=== PATIENT | female | born 1960 | race Caucasian/White ===

== ENCOUNTER 2020-08-25 20:33 | Emergency (ER) | payer BC, OTHER ==
[~2020-08-25] VITALS: Ht 152.4 cm; Wt 81.6 kg
[2020-08-25 20:38] VITALS: BP 163/90
--- NOTE | 2020-08-25 20:38 | NUR ---
to bed ambulatory
--- NOTE | 2020-08-25 21:12 | NUR ---
placed in bed 04. appears comfortable sitting up in bed with 1 rail up for safety. pt is a/o x 4, gcs 15. able to move all extremities. 59 year old female coming from home for c/o left 2nd metatarsal wound. pt is a known diabetic and is compliant with medications. denies any pain on the affected site. denies any other s/sx. breathing is clear and unlabored. abdoment is soft and nontender. normoactive bowel sounds on all quadrants. pmhx: HTN ,DM, HLD nkda
--- NOTE | 2020-08-25 21:40 | NUR ---
Dr. Gasca examining patient at bedside.
--- NOTE | 2020-08-25 21:49 | NUR ---
X-Ray at bedside.
[2020-08-25 22:17] VITALS: BP 147/71
--- NOTE | 2020-08-25 22:18 | NUR ---
pt now laying down comfortaby in bed. does not appear to be in distress. a/o x 4. gcs 15.
[2020-08-25 22:22] LABS: BASOPHILS % (AUTO) 0.5 % (0.0-2.0); EOSINOPHILS # (AUTO) 0.1 K/uL (0-0.4); EOSINOPHILS % (AUTO) 2.1 % (0.0-4.0); HEMATOCRIT 37.2 % (36-48); HEMOGLOBIN 12.6 g/dL (12.0-16.0); LYMPHOCYTES # (AUTO) 1.8 K/uL (2.5-16.5); LYMPHOCYTES % (AUTO) 30.3 % (20.5-51.1); MEAN CORPUSCULAR HEMOGLOBIN 30 pg (27-31); MEAN CORPUSCULAR HGB CONC 34 g/dL (33-37); MEAN CORPUSCULAR VOLUME 88.5 fL (80-94); MONOCYTES # (AUTO) 0.3 K/uL (0.8-1.0); MONOCYTES % (AUTO) 4.9 % (1.7-9.3); NEUTROPHILS # (AUTO) 3.8 K/uL (1.8-7.7); NEUTROPHILS % (AUTO) 62.2 % (42.2-75.2); PLATELET COUNT (AUTO) 206 K/uL (140-450); RED CELL DISTRIBUTION WIDTH 12.5 % (11.6-13.7)
[2020-08-25] MEDS ORDERED: CEPH250C16 PO (23:03)
--- NOTE | 2020-08-25 23:05 | NUR ---
Dr. Gasca examining patient.
== END 2020-08-25 23:31 | disposition home or self-care (01) ==
LOC: MED 20:33
DX: S91.115A Laceration without foreign body of left lesser toe(s) without damage to nail, initial encounter (principal); E11.40 Type 2 diabetes mellitus with diabetic neuropathy, unspecified; Z79.899 Other long term (current) drug therapy; X58.XXXA Exposure to other specified factors, initial encounter; Y93.89 Activity, other specified; Y92.89 Other specified places as the place of occurrence of the external cause; Y99.8 Other external cause status
CPT/HCPCS: 36415; 73630; 85025; 85651; 86140; 99284

== ENCOUNTER 2020-11-27 11:17 | Emergency (ER) | payer OTHER ==
[~2020-11-27] VITALS: Ht 152.4 cm; Wt 81.6 kg
[~2020-11-27 11:17] MED LIST: CEPH250C16 PO
[2020-11-27 11:23] VITALS: BP 173/74
--- NOTE | 2020-11-27 11:36 | NUR ---
60 Y/O FEMALE C/O R LEG PAIN S/P FALLING AT HOME 11/21/20. PT DENIES HITTING HEAD/LOC. PT CALLED PCP AND WAS GIVEN IBUPROFEN BUT PAIN IS WORSENING. PT STATES 12/28 PRESSURE PAIN. SWELLING AND BRUISING NOTED TO RT LEG. PMH:DM- NEUROPATHY, HTN NKDA
--- NOTE | 2020-11-27 11:39 | NUR ---
DR DIAZ AT BEDSIDE EXAMINING PT
[2020-11-27] MEDS ORDERED: KETOROLAC 30 MG/ML VIAL IM ONE (11:45)
--- NOTE | 2020-11-27 11:47 | NUR ---
XRAY AT BEDSIDE
[2020-11-27] MEDS ORDERED: TRAM50TA3 PO (12:28)
[2020-11-27] MEDS ORDERED: DICL1GEL19 TP (12:28)
--- NOTE | 2020-11-27 12:30 | NUR ---
applied mariel wrap to right knee without any issues
[2020-11-27 12:36] VITALS: BP 173/74
--- NOTE | 2020-11-27 12:36 | NUR ---
Patient discharged with v/s stable. Written and verbal after care instructions given and explained. Patient alert, oriented and verbalized understanding of instructions. Ambulatory with steady gait. All questions addressed prior to discharge. ID band removed. Patient advised to follow up with PMD. Rx of TRAMADOL AND VOLTAREN given. Patient educated on indication of medication including possible reaction and side effects. Opportunity to ask questions provided and answered.
== END 2020-11-27 12:36 | disposition home or self-care (01) ==
LOC: MED 11:17
DX: S80.01XA Contusion of right knee, initial encounter (principal); M25.461 Effusion, right knee; E11.9 Type 2 diabetes mellitus without complications; I10 Essential (primary) hypertension; Z79.899 Other long term (current) drug therapy; W19.XXXA Unspecified fall, initial encounter; Y93.89 Activity, other specified; Y92.89 Other specified places as the place of occurrence of the external cause; Y99.8 Other external cause status
CPT/HCPCS: 73562; 96372; 99283; J1885

== ENCOUNTER 2021-02-15 21:44 | Emergency (ER) | payer OTHER ==
[~2021-02-15] VITALS: Ht 152.4 cm; Wt 78.5 kg
[~2021-02-15 21:44] MED LIST changes: +DICL1GEL19 TP; +TRAM50TA3 PO
[2021-02-15 22:10] VITALS: BP 152/90
--- NOTE | 2021-02-15 22:10 | NUR ---
TO BED AMBULATORY
--- NOTE | 2021-02-15 22:20 | NUR ---
PATIENT BIB SELF FROM HOME FOR C/O ABSCESS TO POSTERIOR ANKLE. PATIENT STATES APPEARED X 4 DAYS AGO AND HAD GOTTEN WORSE. PER PATIENT WENT TO SEE PRIMARY CARE X 2 DAYS AGO AND IS CURRENTLY TAKING ROCEPHIN AND BACTRIM PO FOR ABCESS. PATIENT STATES REDNESS AND SWELLING GREW. PATIENT DENIES FEVERS, CURRENTLY AFEBRILE. PATIENT STATES PAIN 5/10 UPON PALPATION. WOUND 2CM X 2 CM. REDNESS NOTED AROUND BOARDER, WITH SWELLING, WOUND CLOSED WITH PURLUENT DRAINAGE NOTED UNDER SKIN. MEDHX: DM TYPE II. NKA
--- NOTE | 2021-02-15 22:20 | NUR ---
ERMD AT BEDSIDE FOR MEDICAL EVALUATION.
--- NOTE | 2021-02-15 23:23 | NUR ---
I&D Procedure done by Dr HELLER, 2CC amt of bleeding noted. PATIET WOUND CLEANED WITH NS AND XEROFORM APPLIED. Wound care discussed w/ patient.
[2021-02-15] MEDS ORDERED: BACITRACIN OINT 500 UNITS/GM PKT TP ONE (23:30)
[2021-02-15] MEDS ORDERED: CLIN300C2 PO (23:41)
[2021-02-15] MEDS ORDERED: ITRA100C PO (23:41)
[2021-02-15 23:50] VITALS: BP 148/82
--- NOTE | 2021-02-15 23:50 | NUR ---
Patient discharged with v/s stable. Written and verbal after care instructions given and explained. Patient alert, oriented and verbalized understanding of instructions. Ambulatory with steady gait. All questions addressed prior to discharge. ID band removed. Patient advised to follow up with PMD. Rx of CLINDAMYCIN, ITRACONAZOLE given. Patient educated on indication of medication including possible reaction and side effects. Opportunity to ask questions provided and answered.
== END 2021-02-15 23:50 | disposition home or self-care (01) ==
LOC: MED 21:44
DX: L03.116 Cellulitis of left lower limb (principal); E11.9 Type 2 diabetes mellitus without complications
CPT/HCPCS: 99283

== ENCOUNTER 2021-07-11 19:19 | Emergency (ER) | payer OTHER ==
[~2021-07-11] VITALS: Ht 154.9 cm; Wt 78.2 kg
[~2021-07-11 19:19] MED LIST changes: +CLIN300C2 PO; +[UNRECOGNIZED DRUG - CODE] PO
[2021-07-11 19:30] VITALS: BP 160/74
--- NOTE | 2021-07-11 19:33 | NUR ---
TO LOBBY A/W BED AMBULATORY
--- NOTE | 2021-07-11 20:30 | NUR ---
SEEN AND EXAMINED BY DORIS
[2021-07-11] MEDS ORDERED: LIDOCAINE/PRILOCAINE 2.5% 5 GM TUBE TP ONE (20:35)
[2021-07-11] MEDS ORDERED: ACETAMINOPHEN EXTRA STRENGTH 500 MG TAB PO ONE (20:35)
--- NOTE | 2021-07-11 22:00 | NUR ---
WOUND WAS CLEANED BY PA , PATIENT TOLERATED WELL.
[2021-07-11] MEDS ORDERED: ACET-10509 PO (22:06)
[2021-07-11] MEDS ORDERED: SULF-59 PO (22:06)
[2021-07-11 22:10] VITALS: BP 123/82
--- NOTE | 2021-07-11 22:10 | NUR ---
Patient discharged with v/s stable. Written and verbal after care instructions given and explained. Patient alert, oriented and verbalized understanding of instructions. Ambulatory with steady gait. All questions addressed prior to discharge. ID band removed. Patient advised to follow up with PMD. Rx of TYLENOL, BACTRIM given. Patient educated on indication of medication including possible reaction and side effects. Opportunity to ask questions provided and answered.
== END 2021-07-11 22:10 | disposition home or self-care (01) ==
LOC: MED 19:19
DX: L02.811 Cutaneous abscess of head [any part, except face] (principal); I10 Essential (primary) hypertension; E11.9 Type 2 diabetes mellitus without complications; Z79.899 Other long term (current) drug therapy
CPT/HCPCS: 99283

== ENCOUNTER 2021-07-21 15:13 | Emergency (ER) | payer OTHER ==
[~2021-07-21] VITALS: Ht 157.5 cm; Wt 76.7 kg
[~2021-07-21 15:13] MED LIST changes: +ACET-10509 PO; +SULF-59 PO
[2021-07-21 15:48] VITALS: BP 191/95
--- NOTE | 2021-07-21 15:51 | NUR ---
PT TO WAIT IN LOBBY.
--- NOTE | 2021-07-21 16:06 | NUR ---
PT TO Viky, DR. GILL WITH PT FOR FURTHER EVALUATION.
[2021-07-21] MEDS ORDERED: LIDOCAINE/EPI 1% 1:100000 20 ML VIAL INJ ONE (16:10)
--- NOTE | 2021-07-21 16:14 | NUR ---
60 Y/O FEMALE C/O HEADACHE 910 S/P HEAD INJURY [id number] AGO. PT STATES SHE WAS SEEN X1WEEK AGO AND TODAY PUS IS DRAINING FROM AREA. DENIES FEVER/CHILLS. DENIES N/V. BLOOD SUGAR 493. PMH: DM, HTN, HLD NKA
[2021-07-21 16:47] LABS: BASOPHILS % (AUTO) 0.4 % (0.0-2.0); EOSINOPHILS # (AUTO) 0.1 K/uL (0-0.4); EOSINOPHILS % (AUTO) 1.9 % (0.0-4.0); HEMOGLOBIN 11.9 g/dL (12.0-16.0); LYMPHOCYTES # (AUTO) 1.6 K/uL (2.5-16.5); LYMPHOCYTES % (AUTO) 21.9 % (20.5-51.1); MEAN CORPUSCULAR HEMOGLOBIN 30 pg (27-31); MEAN CORPUSCULAR HGB CONC 34 g/dL (33-37); MEAN CORPUSCULAR VOLUME 87.6 fL (80-94); MONOCYTES # (AUTO) 0.3 K/uL (0.8-1.0); MONOCYTES % (AUTO) 4.4 % (1.7-9.3); NEUTROPHILS # (AUTO) 5.1 K/uL (1.8-7.7); NEUTROPHILS % (AUTO) 71.4 % (42.2-75.2); PLATELET COUNT (AUTO) 289 K/uL (140-450); RED BLOOD CELL COUNT(AUTO) 3.99 MIL/uL (4.20-5.40); RED CELL DISTRIBUTION WIDTH 12.4 % (11.6-13.7); WHITE BLOOD COUNT (AUTO) 7.2 K/uL (4.8-10.8)
[2021-07-21 17:14] LABS: ANION GAP 10.7 (8-16); CARBON DIOXIDE 30.7 mmol/L (21-32); POTASSIUM 5.4 mmol/L (3.5-5.1)
--- NOTE | 2021-07-21 17:19 | NUR ---
RICKI MCMAHON WITH PT IN B FOR PROCEDURE.
[2021-07-21] MEDS ORDERED: NACL 0.9% 1,000 ML IV ONE (19:10)
[2021-07-21] MEDS ORDERED: INSULIN REGULAR, HUMAN 100 UNIT/ML VIAL IVP ONE (19:10)
[2021-07-21 21:39] LABS: ANION GAP 11.9 (8-16); CARBON DIOXIDE 28.7 mmol/L (21-32); CREATININE 0.9 mg/dL (0.6-1.3); POTASSIUM 4.6 mmol/L (3.5-5.1)
[2021-07-21] MEDS ORDERED: SULF-59 PO (21:44)
[2021-07-21 22:12] VITALS: BP 175/85
== END 2021-07-21 22:12 | disposition home or self-care (01) ==
LOC: MED 15:13
DX: L02.811 Cutaneous abscess of head [any part, except face] (principal); E11.65 Type 2 diabetes mellitus with hyperglycemia; I10 Essential (primary) hypertension; Z79.899 Other long term (current) drug therapy
CPT/HCPCS: 10060; 36415; 80048; 85025; 96361; 96374; 99283; J1815; J2001; J7030

== ENCOUNTER 2022-04-25 13:44 | Emergency (ER) | payer OTHER ==
[~2022-04-25] VITALS: Ht 147.3 cm; Wt 79.4 kg
[2022-04-25 14:04] VITALS: BP 200/97
--- NOTE | 2022-04-25 14:27 | NUR ---
61/F WALKED IN REQUESTING MED REFILL OF INSULIN. PT STATES HER PX INSULIN RAN OUT LAST NIGHT AND HAS BEEN FEELING DIZZY AND NAUSEOUS TODAY. BS AT TRIAGE 418 AND BP 200/97. ERMD AWARE. PMH: DM, HTN, CHOLESTEROL NKDA
[2022-04-25] MEDS ORDERED: NACL 0.9% 1,000 ML IV ONE (14:30)
[2022-04-25] MEDS ORDERED: lisinopriL 20 MG TAB PO ONE (14:30)
[2022-04-25 15:00] LABS: BASOPHILS % (AUTO) 0.6 % (0.0-2.0); EOSINOPHILS # (AUTO) 0.1 K/uL (0-0.4); EOSINOPHILS % (AUTO) 0.9 % (0.0-4.0); HEMATOCRIT 35.5 % (36-48); HEMOGLOBIN 12.1 g/dL (12.0-16.0); LYMPHOCYTES # (AUTO) 1.2 K/uL (2.5-16.5); LYMPHOCYTES % (AUTO) 20.4 % (20.5-51.1); MEAN CORPUSCULAR HEMOGLOBIN 30 pg (27-31); MEAN CORPUSCULAR HGB CONC 34 g/dL (33-37); MEAN CORPUSCULAR VOLUME 89.4 fL (80-94); MONOCYTES # (AUTO) 0.3 K/uL (0.8-1.0); NEUTROPHILS # (AUTO) 4.3 K/uL (1.8-7.7); NEUTROPHILS % (AUTO) 73.1 % (42.2-75.2); PLATELET COUNT (AUTO) 192 K/uL (140-450); RED BLOOD CELL COUNT(AUTO) 3.97 MIL/uL (4.20-5.40); RED CELL DISTRIBUTION WIDTH 12.7 % (11.6-13.7); WHITE BLOOD COUNT (AUTO) 5.9 K/uL (4.8-10.8)
--- NOTE | 2022-04-25 15:00 | NUR ---
XR AT BEDSIDE
--- NOTE | 2022-04-25 15:04 | NUR ---
EKG AT BEDSIDE
[2022-04-25] MEDS ORDERED: CLONIDINE HYDROCHLORIDE 0.1 MG TAB PO ONE (15:20)
[2022-04-25 15:22] LABS: PROTHROMBIN TIME 9.4 secs (10.8-13.4)
[2022-04-25 15:28] LABS: ACETONE, SERUM NEGATIVE (NEGATIVE); ALBUMIN 2.2 g/dL (3.4-5.0); CARBON DIOXIDE 27.6 mmol/L (21-32); CREATININE 1.2 mg/dL (0.6-1.3); TOTAL BILIRUBIN 0.1 mg/dL (0.0-1.0)
[2022-04-25 15:43] LABS: POTASSIUM 4.6 mmol/L (3.5-5.1)
--- NOTE | 2022-04-25 15:47 | NUR ---
PT WENT FOR CT
--- NOTE | 2022-04-25 16:00 | NUR ---
PT BACK FROM CT. PT AMBULATED TO RESTROOM.
[2022-04-25] MEDS ORDERED: hydrALAZINE 25 MG TAB PO STA (16:14)
[2022-04-25] MEDS ORDERED: hydrALAZINE 10 MG TAB ONE (16:21)
[2022-04-25] MEDS ORDERED: hydrALAZINE 10 MG TAB PO STA (16:23)
[2022-04-25] MEDS ORDERED: LISI40TA12 PO (17:07)
[2022-04-25] MEDS ORDERED: INSU100I7 SQ (17:07)
[2022-04-25 17:12] VITALS: BP 179/75
--- NOTE | 2022-04-25 17:15 | NUR ---
Patient discharged with v/s stable. Written and verbal after care instructions given and explained. Patient alert, oriented and verbalized understanding of instructions. Ambulatory with steady gait. All questions addressed prior to discharge. ID band removed. Patient advised to follow up with PMD. Patient educated on indication of medication including possible reaction and side effects. Opportunity to ask questions provided and answered.
== END 2022-04-25 17:15 | disposition home or self-care (01) ==
LOC: MED 13:44
DX: E11.65 Type 2 diabetes mellitus with hyperglycemia (principal); I10 Essential (primary) hypertension; R51.9 Headache, unspecified; E78.5 Hyperlipidemia, unspecified; Z76.0 Encounter for issue of repeat prescription; Z79.899 Other long term (current) drug therapy
CPT/HCPCS: 36415; 70450; 71045; 80053; 82009; 83880; 84484; 85025; 85610; 85730; 93005; 99291; J7030

== ENCOUNTER 2023-01-16 16:40 | Emergency (ER) | payer OTHER ==
[~2023-01-16] VITALS: Ht 149.9 cm; Wt 83.9 kg
[~2023-01-16 16:40] MED LIST changes: +INSU100I7 SQ; +LISI40TA12 PO
[2023-01-16 16:47] VITALS: BP 150/60; PULSE 97; RESP 20; TEMP 99; O2SAT 99
--- NOTE | 2023-01-16 17:00 | NUR ---
PT AMBULATED TO BED 11
[2023-01-16 17:58] VITALS: BP 140/62; PULSE 88; RESP 20; TEMP 98.1; O2SAT 99
--- NOTE | 2023-01-16 17:58 | NUR ---
Patient discharged with v/s stable. Written and verbal after care instructions FOR PUNCTURE WOUND given and explained. Patient verbalized understanding. Ambulatory with steady gait. All questions addressed prior to discharge. Advised to follow up with PMD.
== END 2023-01-16 17:58 | disposition home or self-care (01) ==
LOC: MED 16:40
DX: S91.302A Unspecified open wound, left foot, initial encounter (principal); E11.9 Type 2 diabetes mellitus without complications; I10 Essential (primary) hypertension; E78.5 Hyperlipidemia, unspecified; W22.8XXA Striking against or struck by other objects, initial encounter; Y93.89 Activity, other specified; Y92.89 Other specified places as the place of occurrence of the external cause; Y99.8 Other external cause status
CPT/HCPCS: 73630; 82948; 90471; 90715; 99283; 99284

== ENCOUNTER 2023-02-06 21:52 | Inpatient (IN) | payer OTHER ==
[~2023-02-06] VITALS: Ht 157.5 cm; Wt 71.7 kg
[2023-02-06 22:03] VITALS: BP 150/68; PULSE 89; RESP 17; TEMP 97.8; O2SAT 97
[2023-02-06] MEDS ORDERED: MORPHINE SULFATE 4 MG/ML SYR IVP ONE (23:25)
[2023-02-06] MEDS ORDERED: ONDANSETRON 4 MG/2 ML VIAL IVP ONE (23:25)
[2023-02-06] MEDS ORDERED: ENALAPRILAT 2.5 MG/2 ML VIAL IVP ONE (23:25)
[2023-02-06 23:50] LABS: BASOPHILS % (AUTO) 0.2 % (0.0-2.0); EOSINOPHILS % (AUTO) 0.2 % (0.0-4.0); HEMATOCRIT 35.4 % (36-48); HEMOGLOBIN 11.9 g/dL (12.0-16.0); LYMPHOCYTES # (AUTO) 1.4 K/uL (2.5-16.5); LYMPHOCYTES % (AUTO) 30.3 % (20.5-51.1); MEAN CORPUSCULAR HEMOGLOBIN 30 pg (27-31); MEAN CORPUSCULAR HGB CONC 34 g/dL (33-37); MEAN CORPUSCULAR VOLUME 88.8 fL (80-94); MONOCYTES # (AUTO) 0.5 K/uL (0.8-1.0); MONOCYTES % (AUTO) 10.7 % (1.7-9.3); NEUTROPHILS # (AUTO) 2.6 K/uL (1.8-7.7); NEUTROPHILS % (AUTO) 58.6 % (42.2-75.2); PLATELET COUNT (AUTO) 149 K/uL (140-450); RED BLOOD CELL COUNT(AUTO) 3.98 MIL/uL (4.20-5.40); RED CELL DISTRIBUTION WIDTH 12.8 % (11.6-13.7); WHITE BLOOD COUNT (AUTO) 4.5 K/uL (4.8-10.8)
[2023-02-07] VITALS (7 sets, daily range): BP systolic 155–168; BP diastolic 93–112; PULSE 77–84; RESP 18–20; TEMP 97.4–98.6; O2SAT 95–98
[2023-02-07 00:20] LABS: ALANINE AMINOTRANSFERASE 22 U/L (12-78); ALBUMIN 2.8 g/dL (3.4-5.0); ALKALINE PHOSPHATASE 101 U/L (50-136); ANION GAP 10.3 (8-16); ASPARTATE AMINOTRANSFERASE 23 U/L (15-37); CALCIUM 8.3 mg/dL (8.5-10.1); CARBON DIOXIDE 30.4 mmol/L (21-32); CHLORIDE 103 mmol/L (98-107); CREATININE 1.4 mg/dL (0.6-1.3); GFR ARICAN-AMERICAN 49 mL/min (>90); GFR NON ARICAN-AMERICAN 40 mL/min (>90); GLUCOSE 184 mg/dL (74-106); POTASSIUM 4.7 mmol/L (3.5-5.1); SODIUM SERUM 139 mmol/L (136-145); TOTAL BILIRUBIN 0.5 mg/dL (0.0-1.0); TOTAL PROTEIN, SERUM 6.8 g/dL (6.4-8.2); UREA NITROGEN, BLOOD 18 mg/dL (7-18)
[2023-02-07 02:49] LABS: BILIRUBIN,URINE NEGATIVE (NEGATIVE); BLOOD, URINE 2+ (NEGATIVE); COLOR,URINE YELLOW (YELLOW); LEUKOCYTE ESTERASE ,URINE NEGATIVE (NEGATIVE); NITRITE, URINE NEGATIVE (NEGATIVE); PROTEIN,URINE 3+ (NEGATIVE); UGLUCOSE NEGATIVE (NEGATIVE); UROBILINOGEN,URINE 0.2 EU/dL (0.2 - 1)
[2023-02-07 02:53] LABS: APPEARANCE,URINE SLIGHTLY CLOUDY (CLEAR)
[2023-02-07 03:07] LABS: BACTERIA,URINE 4+ /HPF (None Seen); RBC,URINE 0-5 /HPF (0-5); SQUAMOUS EPITHELIAL CELL,UR 0-3 (FEW) /LPF (0-3 (FEW))
[2023-02-07] MEDS ORDERED: LISI-487 PO (04:01)
[2023-02-07] MEDS ORDERED: NITR100C7 PO (04:01)
[2023-02-07] MEDS ORDERED: ONDANSETRON 4 MG/2 ML VIAL ONE (04:23)
[2023-02-07] MEDS ORDERED: ONDANSETRON 4 MG/2 ML VIAL IVP ONE (04:30)
[2023-02-07] MEDS ORDERED: cefTRIAXone 1,000 MG VIAL ONE (04:34)
[2023-02-07] MEDS ORDERED: levETIRAcetam 100 MG/ML VIAL IV ONE (04:35)
[2023-02-07] MEDS ORDERED: MORPHINE SULFATE 2 MG/ML SYR IVP PRN (05:20)
[2023-02-07] MEDS ORDERED: KCL 20 MEQ IN 100 mL PREMIX 200 ML IV PRN (05:20)
[2023-02-07] MEDS ORDERED: POTASSIUM CHLORIDE 10 MEQ TABER PO PRN (05:20)
[2023-02-07] MEDS ORDERED: MAGNESIUM OXIDE 400 MG TAB PO PRN (05:20)
[2023-02-07] MEDS ORDERED: MAG SULF 2000 MG/WATER PREMIX 50 ML IV PRN (05:20)
[2023-02-07] MEDS ORDERED: ONDANSETRON 4 MG/2 ML VIAL IVP PRN (05:20)
[2023-02-07] MEDS ORDERED: hydrALAZINE 20 MG/ML VIAL IVP PRN (05:25)
[2023-02-07] MEDS: levETIRAcetam 500 MG in NACL 0.9% 100 ML IV SCH ×2 (09:00→21:49)
[2023-02-07] MEDS: ENOXAPARIN 40 MG/0.4 ML SYR SUBQ SCH (09:00)
[2023-02-07] MEDS: ACETAMINOPHEN 325 MG TAB PO PRN ×2 (11:41→17:31)
[2023-02-08] VITALS (7 sets, daily range): BP systolic 125–177; BP diastolic 40–100; PULSE 70–106; RESP 17–20; TEMP 98.6–99.1; O2SAT 94–97
[2023-02-08] MEDS: ACETAMINOPHEN 325 MG TAB PO PRN ×2 (04:44→15:20)
[2023-02-08 05:46] LABS: ALBUMIN 2.4 g/dL (3.4-5.0); ANION GAP 10.1 (8-16); BASOPHILS % (AUTO) 0.2 % (0.0-2.0); CARBON DIOXIDE 27.6 mmol/L (21-32); CREATININE 1.6 mg/dL (0.6-1.3); EOSINOPHILS % (AUTO) 0.6 % (0.0-4.0); HEMATOCRIT 32.7 % (36-48); HEMOGLOBIN 11.1 g/dL (12.0-16.0); LYMPHOCYTES # (AUTO) 0.8 K/uL (2.5-16.5); LYMPHOCYTES % (AUTO) 20.9 % (20.5-51.1); MAGNESIUM 2.1 mg/dL (1.8-2.4); MEAN CORPUSCULAR HEMOGLOBIN 30 pg (27-31); MEAN CORPUSCULAR HGB CONC 34 g/dL (33-37); MEAN CORPUSCULAR VOLUME 89.1 fL (80-94); MONOCYTES # (AUTO) 0.5 K/uL (0.8-1.0); MONOCYTES % (AUTO) 11.1 % (1.7-9.3); NEUTROPHILS # (AUTO) 2.7 K/uL (1.8-7.7); NEUTROPHILS % (AUTO) 67.2 % (42.2-75.2); PLATELET COUNT (AUTO) 119 K/uL (140-450); POTASSIUM 4.7 mmol/L (3.5-5.1); RED BLOOD CELL COUNT(AUTO) 3.67 MIL/uL (4.20-5.40); RED CELL DISTRIBUTION WIDTH 12.7 % (11.6-13.7); TOTAL BILIRUBIN 0.3 mg/dL (0.0-1.0); TOTAL PROTEIN, SERUM 6.3 g/dL (6.4-8.2); WHITE BLOOD COUNT (AUTO) 4.1 K/uL (4.8-10.8)
[2023-02-08] MEDS: ENOXAPARIN 40 MG/0.4 ML SYR SUBQ SCH (08:27)
[2023-02-08] MEDS: levETIRAcetam 500 MG in NACL 0.9% 100 ML IV SCH ×2 (09:29→22:18)
[2023-02-08] MEDS: HYDROcodone/APAP 5/325 MG 1 TAB TAB PO PRN (11:13)
[2023-02-08] MEDS: hydrALAZINE 20 MG/ML VIAL IVP PRN (16:38)
[2023-02-08] MEDS ORDERED: remdesivir COMMUNICATION ORDER 1 EA MISC MC PRN (17:40)
[2023-02-08] MEDS ORDERED: remdesivir CLINICAL MONITORING 1 EA MISC MC PRN (17:50)
[2023-02-08] MEDS ORDERED: REMDESIVIR. 200 MG in NACL 0.9% 100 ML IV SCH (18:30)
[2023-02-09] VITALS: BP 153/96; PULSE 76; RESP 20; TEMP 98.5; O2SAT 95
[2023-02-09] MEDS: hydrALAZINE 20 MG/ML VIAL IVP PRN ×2 (01:42→21:08)
[2023-02-09 08:00] VITALS: BP 159/67; PULSE 60; RESP 20; TEMP 97.2; O2SAT 99
[2023-02-09 08:00] LABS: BASOPHILS % (AUTO) 0.1 % (0.0-2.0); HEMATOCRIT 33.9 % (36-48); HEMOGLOBIN 11.2 g/dL (12.0-16.0); LYMPHOCYTES # (AUTO) 0.6 K/uL (2.5-16.5); LYMPHOCYTES % (AUTO) 18.6 % (20.5-51.1); MEAN CORPUSCULAR HEMOGLOBIN 30 pg (27-31); MEAN CORPUSCULAR HGB CONC 33 g/dL (33-37); MONOCYTES # (AUTO) 0.1 K/uL (0.8-1.0); MONOCYTES % (AUTO) 3.9 % (1.7-9.3); NEUTROPHILS # (AUTO) 2.4 K/uL (1.8-7.7); NEUTROPHILS % (AUTO) 77.4 % (42.2-75.2); PLATELET COUNT (AUTO) 119 K/uL (140-450); RED BLOOD CELL COUNT(AUTO) 3.81 MIL/uL (4.20-5.40); RED CELL DISTRIBUTION WIDTH 12.7 % (11.6-13.7); WHITE BLOOD COUNT (AUTO) 3.1 K/uL (4.8-10.8)
[2023-02-09 08:21] LABS: ALBUMIN 2.2 g/dL (3.4-5.0); ANION GAP 13.4 (8-16); CALCIUM 7.9 mg/dL (8.5-10.1); CARBON DIOXIDE 26.1 mmol/L (21-32); CREATININE 1.8 mg/dL (0.6-1.3); MAGNESIUM 2.5 mg/dL (1.8-2.4); POTASSIUM 4.5 mmol/L (3.5-5.1); TOTAL BILIRUBIN 0.2 mg/dL (0.0-1.0); TOTAL PROTEIN, SERUM 6.4 g/dL (6.4-8.2)
[2023-02-09] MEDS: ENOXAPARIN 40 MG/0.4 ML SYR SUBQ SCH (09:00)
[2023-02-09] MEDS: levETIRAcetam 500 MG in NACL 0.9% 100 ML IV SCH ×2 (09:58→20:42)
[2023-02-09] MEDS ORDERED: DEXTROSE 50% 50 ML SYR IVP PRN (12:50)
[2023-02-09 13:33] VITALS: O2SAT 96
[2023-02-09 16:00] VITALS: BP 159/69; PULSE 70; RESP 20; TEMP 97.5; O2SAT 98
[2023-02-09] MEDS ORDERED: REMDESIVIR. 100 MG in NACL 0.9% 100 ML IV SCH (16:00)
[2023-02-09] MEDS: BLOOD GLUCOSE MONITORING 1 DEV DEV FS SCH ×2 (17:05→21:03)
[2023-02-09] MEDS: INSULIN LISPRO SLIDING SCALE 100 UNITS/ML VIAL SUBQ PRN ×2 (17:05→21:04)
[2023-02-09] MEDS ORDERED: INSULIN LANTUS 100 UNITS/ML 10 ML VIAL SUBQ SCH (18:27)
[2023-02-09 20:00] VITALS: BP 170/74; PULSE 85; RESP 20; TEMP 97.1; O2SAT 97
[2023-02-10] VITALS: BP 156/76; PULSE 77; RESP 19; TEMP 97.3; O2SAT 98
[2023-02-10] MEDS: HYDROcodone/APAP 5/325 MG 1 TAB TAB PO PRN (01:56)
[2023-02-10] MEDS: hydrALAZINE 20 MG/ML VIAL IVP PRN (06:10)
[2023-02-10] MEDS: BLOOD GLUCOSE MONITORING 1 DEV DEV FS SCH ×2 (06:11→11:30)
[2023-02-10] MEDS: INSULIN LISPRO SLIDING SCALE 100 UNITS/ML VIAL SUBQ PRN ×2 (06:12→13:18)
[2023-02-10 08:00] VITALS: PULSE 81
[2023-02-10 08:40] LABS: HEMATOCRIT 30.9 % (36-48); HEMOGLOBIN 10.5 g/dL (12.0-16.0); LYMPHOCYTES % (AUTO) 17.5 % (20.5-51.1); MEAN CORPUSCULAR HEMOGLOBIN 30 pg (27-31); MEAN CORPUSCULAR HGB CONC 34 g/dL (33-37); MONOCYTES # (AUTO) 0.2 K/uL (0.8-1.0); MONOCYTES % (AUTO) 4.2 % (1.7-9.3); NEUTROPHILS # (AUTO) 4.3 K/uL (1.8-7.7); NEUTROPHILS % (AUTO) 78.3 % (42.2-75.2); PLATELET COUNT (AUTO) 134 K/uL (140-450); RED BLOOD CELL COUNT(AUTO) 3.52 MIL/uL (4.20-5.40); RED CELL DISTRIBUTION WIDTH 12.9 % (11.6-13.7); WHITE BLOOD COUNT (AUTO) 5.5 K/uL (4.8-10.8)
[2023-02-10 09:00] LABS: ALBUMIN 2.2 g/dL (3.4-5.0); ANION GAP 11.3 (8-16); CREATININE 1.7 mg/dL (0.6-1.3); MAGNESIUM 2.8 mg/dL (1.8-2.4); POTASSIUM 4.3 mmol/L (3.5-5.1); TOTAL BILIRUBIN 0.1 mg/dL (0.0-1.0); TOTAL PROTEIN, SERUM 6.1 g/dL (6.4-8.2)
[2023-02-10] MEDS: ENOXAPARIN 40 MG/0.4 ML SYR SUBQ SCH (09:00)
[2023-02-10] MEDS: levETIRAcetam 500 MG in NACL 0.9% 100 ML IV SCH (10:32)
[2023-02-10] MEDS ORDERED: CEFD300C3 PO (12:11)
[2023-02-10] MEDS ORDERED: APIX2.5 PO (12:13)
[2023-02-10] MEDS ORDERED: KEP500 PO (12:13)
[2023-02-10] MEDS: NACL 0.9% 1,000 ML IV SCH ×2 (13:21)
[2023-02-10 14:21] VITALS: BP 140/58; PULSE 81; RESP 20; TEMP 96.8
[2023-02-10] MEDS ORDERED: INSULIN LANTUS 100 UNITS/ML 10 ML VIAL SUBQ SCH (18:00)
== END 2023-02-10 16:35 | disposition home or self-care (01) | DRG 137 ==
LOC: MED 21:52 → MTU 02-07 05:23
PROVIDERS: ADMIT Internal Medicine; ATTEND Internal Medicine
PROC: 4A00X4Z Measurement of Central Nervous Electrical Activity, External Approach (ICD-10-PCS; principal; 2023-02-07)
PROC: XW033E5 Introduction of Remdesivir Anti-infective into Peripheral Vein, Percutaneous Approach, New Technology Group 5 (ICD-10-PCS; 2023-02-08)
DX: U07.1 COVID-19 (principal); J96.00 Acute respiratory failure, unspecified whether with hypoxia or hypercapnia; J12.82 Pneumonia due to coronavirus disease 2019; E44.1 Mild protein-calorie malnutrition; N39.0 Urinary tract infection, site not specified; B96.20 Unspecified Escherichia coli [E. coli] as the cause of diseases classified elsewhere; E11.9 Type 2 diabetes mellitus without complications; E66.9 Obesity, unspecified; I10 Essential (primary) hypertension; R56.9 Unspecified convulsions; K76.0 Fatty (change of) liver, not elsewhere classified; K80.20 Calculus of gallbladder without cholecystitis without obstruction; K57.30 Diverticulosis of large intestine without perforation or abscess without bleeding; K76.9 Liver disease, unspecified; I16.9 Hypertensive crisis, unspecified; Z79.899 Other long term (current) drug therapy; Z68.28 Body mass index [BMI] 28.0-28.9, adult
CPT/HCPCS: 36415; 70450; 71045; 80053; 81001; 82948; 83735; 84484; 85025; 87040; 87081; 87086; 93005; 95816; 96365; 96375; 96376; 99285; J0360; J0696; J1650; J1815; J1953; J2270; J2405; J3490; J7060